=== PATIENT | male | born 1990 | race Caucasian/White ===

== ENCOUNTER 2017-02-20 19:27 | Emergency (ER) | payer OTHER ==
[~2017-02-20] VITALS: Ht 182.9 cm; Wt 92.0 kg
[2017-02-20 19:50] VITALS: BP 160/70
== END 2017-02-21 00:01 ==
LOC: EDBD 19:27 → ED 23:53
DX: F10.120 Alcohol abuse with intoxication, uncomplicated (principal)
CPT/HCPCS: 99283